=== PATIENT | male | born 1995 | race African-American/Black ===

== ENCOUNTER 2019-08-31 15:44 | Emergency (ER) | payer MEDICAID ==
[~2019-08-31] VITALS: Ht 175.3 cm; Wt 116.0 kg
[2019-08-31 19:30] VITALS: BP 150/78
== END 2019-08-31 19:30 | disposition home or self-care (01) ==
LOC: ER 15:44
DX: J18.9 Pneumonia, unspecified organism (principal); F17.290 Nicotine dependence, other tobacco product, uncomplicated
CPT/HCPCS: 71045; 99283

== ENCOUNTER 2019-09-05 20:59 | Inpatient (IN) | payer MEDICAID, OTHER ==
[~2019-09-05] VITALS: Ht 182.9 cm; Wt 113.4 kg
[2019-09-06] MEDS ORDERED: SODIUM CHLORIDE 0.9% 1,000 ML IV ONE (02:01)
[2019-09-06] MEDS ORDERED: LEVETIRACETAM 500MG PREMIX 100 ML IV ONE (02:15)
[2019-09-06 02:33] LABS: MEAN CORPUSCULAR VOLUME 90.1 fL (80.0-94.0); MEAN PLATELET VOLUME 7.9 fl (7.4-10.4); PLATELET 308 x1000/uL (130-400); RED CELL DISTRIBUTION WIDTH 13.8 % (11.6-14.6)
[2019-09-06 02:34] LABS: CHLORIDE 107 mEq/L (98-107)
[2019-09-06 02:37] LABS: ETHANOL BLOOD < 10 mg/dL
[2019-09-06 03:28] LABS: CLARITY URINE CLEAR (CLEAR); COLOR URINE DARK YELLOW (YELLOW); KETONES URINE 2+ (NEGATIVE); LEUKOCYTE ESTERASE URINE NEGATIVE (NEGATIVE); NITRITE URINE NEGATIVE (NEGATIVE); OCCULT BLOOD URINE NEGATIVE (NEGATIVE); PH URINE 5.5 (4.5-8.0); PROTEIN URINE TRACE (NEGATIVE); SPECIFIC GRAVITY URINE 1.035 (1.005-1.030)
[2019-09-06 03:39] LABS: *AMPHETAMINES SCREEN URINE NEGATIVE (NEGATIVE); *BARBITURATES SCREEN URINE NEGATIVE (NEGATIVE); *BENZODIAZEPINES SCREEN URINE NEGATIVE (NEGATIVE); *COCAINE SCREEN URINE NEGATIVE (NEGATIVE); METHADONE URINE SCREEN NEGATIVE (NEGATIVE); OPIATES URINE SCREEN NEGATIVE (NEGATIVE)
[2019-09-06 03:40] LABS: CANNABINOID URINE SCREEN PRESUMTIVE POSITIVE (NEGATIVE); PHENCYCLIDINE URINE SCREEN NEGATIVE (NEGATIVE)
[2019-09-06] MEDS: SODIUM CHLORIDE 0.45% 1,000 ML IV SCH ×2 (06:25→17:30)
[2019-09-06] MEDS ORDERED: ACETAMINOPHEN 325MG TABLET PO PRN (06:30)
[2019-09-06] MEDS ORDERED: ONDANSETRON HCL 4MG/2ML INJ IV PRN (06:30)
[2019-09-06] MEDS ORDERED: CLONIDINE 0.1MG TABLET PO PRN (06:30)
[2019-09-06] MEDS ORDERED: LORAZEPAM 2MG/ML CPJ IV PRN (06:30)
[2019-09-06] MEDS ORDERED: HYDROCODONE/ACETAMINOPHEN 5/325MG TABLET PO PRN (06:30)
[2019-09-06 06:33] LABS: PLATELET ESTIMATE NORMAL
[2019-09-06] MEDS ORDERED: MAGNESIUM/ALUMINUM HYDROXIDE/SIMETHICONE 30ML UDC PO PRN (08:00)
[2019-09-06] MEDS ORDERED: DOCUSATE SODIUM 100MG CAPSULE PO PRN (09:00)
[2019-09-06 11:00] VITALS: BP 140/81
[2019-09-06] MEDS: LEVETIRACETAM 500MG PREMIX 100 ML IV SCH ×2 (14:31→22:30)
[2019-09-06 16:00] VITALS: BP 134/54
[2019-09-06 20:00] VITALS: BP 150/88
[2019-09-06] MEDS ORDERED: IPRATROPIUM/ALBUTEROL 0.5-3(2.5)MG/3ML NEB HHN PRN (22:45)
[2019-09-06] MEDS: GUAIFENESIN-DM 200MG-20MG/10ML UDC PO PRN (23:10)
[2019-09-07 00:57] VITALS: BP 139/90
[2019-09-07] MEDS: SODIUM CHLORIDE 0.45% 1,000 ML IV SCH ×3 (02:46→12:25)
[2019-09-07 04:00] VITALS: BP 155/83
[2019-09-07] MEDS: GUAIFENESIN-DM 200MG-20MG/10ML UDC PO PRN (06:45)
[2019-09-07 07:54] LABS: HEMATOCRIT. 43.9 % (42.0-52.0); HEMOGLOBIN. 14.9 g/dL (14.0-18.0); MEAN CORPUSCULAR HEMOGLOBIN 30.9 pg (28.0-32.0); MEAN CORPUSCULAR VOLUME 90.7 fL (80.0-94.0); MEAN PLATELET VOLUME 7.9 fl (7.4-10.4); PLATELET 294 x1000/uL (130-400); RED BLOOD CELL COUNT 4.84 mill/uL (4.7-6.1); RED CELL DISTRIBUTION WIDTH 13.8 % (11.6-14.6)
[2019-09-07 08:00] VITALS: BP 141/90
[2019-09-07 08:07] LABS: CHLORIDE 106 mEq/L (98-107)
[2019-09-07] MEDS: LEVETIRACETAM 500MG PREMIX 100 ML IV SCH (09:00)
[2019-09-07 10:14] LABS: PLATELET ESTIMATE NORMAL
[2019-09-07 12:00] VITALS: BP 119/60
[2019-09-07 16:00] VITALS: BP 120/75
== END 2019-09-07 20:00 | disposition left against medical advice (07) | DRG 53 ==
LOC: ER 20:59 → 5WST 09-06 04:51 → EDBEDREQ 09-06 04:58 → EDBEDREQTM 09-06 04:58 → ENRESERV 09-06 10:44
PROVIDERS: ADMIT Hospitalist; ATTEND Hospitalist
DX: G40.89 Other seizures (principal); Z53.29 Procedure and treatment not carried out because of patient's decision for other reasons; Z79.899 Other long term (current) drug therapy; Z87.01 Personal history of pneumonia (recurrent)
CPT/HCPCS: 36415; 70551; 71045; 80053; 80305; 80320; 81003; 84484; 85025; 93005; 93970; 94640; 99285; J1953; J7030; G0480

== ENCOUNTER 2023-04-05 18:13 | Emergency (ER) | payer MEDICAID, OTHER ==
[~2023-04-05] VITALS: Ht 177.8 cm; Wt 106.0 kg
[2023-04-05 19:04] VITALS: O2SAT 98
[2023-04-05] MEDS ORDERED: BACITRACIN ZINC OINT UDPKT TOP ONE (20:30)
[2023-04-05] MEDS ORDERED: LIDOCAINE HCL/PF 1% 10 MG/ML 5ML VIAL INFIL ONE (20:30)
[2023-04-05] MEDS: TETANUS, DIPHTHERIA, PERTUSSIS VAC/PF 0.5ML (>10YR OLD) IM ONE ×2 (20:30→21:05)
[2023-04-05 22:45] VITALS: BP 130/72; PULSE 98; RESP 18; TEMP 98.2
== END 2023-04-05 22:59 | disposition home or self-care (01) ==
LOC: ER 18:13
DX: S61.411A Laceration without foreign body of right hand, initial encounter (principal); S61.216A Laceration without foreign body of right little finger without damage to nail, initial encounter; S61.214A Laceration without foreign body of right ring finger without damage to nail, initial encounter; W25.XXXA Contact with sharp glass, initial encounter; Y93.89 Activity, other specified; Y92.89 Other specified places as the place of occurrence of the external cause; Y99.8 Other external cause status
CPT/HCPCS: 99283; 73090; 90715; 12004; 90471; J3490